=== PATIENT | female | born 1975 | race Caucasian/White ===

== ENCOUNTER 2017-01-31 15:22 | Emergency (ER) | payer MEDICARE ==
[~2017-01-31] VITALS: Ht 165.1 cm; Wt 72.5 kg
[2017-01-31 15:25] VITALS: BP 112/70; PULSE 77; RESP 12; TEMP 97.9; O2SAT 99
[2017-01-31 16:08] LABS: BACTERIA, URINE OCC /hpf; BILIRUBIN, URINE NEG (NEG); BLOOD, URINE NEG (NEG); GLUCOSE,URINE NEG (NEG); KETONE, URINE NEG (NEG); MUCUS URINE FEW /lpf (OCC); NITRITE,URINE NEG (NEG); SQUAMOUS EPITHELIAL CELL URINE 6 /hpf (0-5); URINE COLOR YELLOW (YELLW/STRAW); URINE LEUKOCYTE ESTERASE NEG (NEG)
--- NOTE | 2017-01-31 18:05 | PD ---
HPI Chief Complaint: Back/ Neck Pain or Injury Time Seen by Provider: 17:30 Travel History International Travel<30 days: No Contact w/Intl Traveler<30days: No Traveled to known affect area: No History of Present Illness HPI 41 year-old female presents to the emergency room for evaluation of right lower back pain and right ovarian pain. States back pain is been going on for 2 weeks. She denies trauma or injury. Localized to the right lower lumbar region with radiation into the hip. States this morning when she woke up, the pain was at its worst. Upon trying to get out of bed, she her hip spasmed and locked up causing her to leak peon herself. It was temporarily numb. Since then her symptoms have resolved. She took 2 Tylenol No. 3 a few days ago for back pain and it moderately improved her symptoms. Ovarian pain started 5 days and is intermittent. She has history of ovarian pain in the past. She denies urinary symptoms. Last menstrual cycle ended 5 days ago. PFS Social History Tobacco Use: No Allergies-Medications (Allergen,Severity, Reaction): Coded Allergies: tramadol (Verified Allergy, Severe, 01/31/17) Reported Meds & Prescriptions Reported Meds & Active Scripts Active Prednisone 20 Mg Tab 40 Mg PO DAILY Take 40 mg (2 tablets) daily for 5 days Ibuprofen 600 Mg Tab 600 Mg PO Q8HR PRN 5 Days Robaxin (Methocarbamol) 750 Mg Tab 750 Mg PO Q8HR 5 Days Review of Systems Except as stated in HPI: all other systems reviewed are Neg Physical Exam Narrative GENERAL: Well-nourished, well-developed female in no acute distress. Afebrile. Ambulatory. Moving easily on the bed. SKIN: Focused skin assessment warm/dry. No erythema or ecchymosis. HEAD: Normocephalic. EYES: No scleral icterus. No injection or drainage. NECK: Supple, trachea midline. No JVD or lymphadenopathy. CARDIOVASCULAR: Regular rate and rhythm without murmurs, gallops, or rubs. RESPIRATORY: Breath sounds equal bilaterally. No accessory muscle use. GASTROINTESTINAL: Abdomen soft, non-tender, nondistended. Mild tenderness to palpation over the right pelvic region. No rebound tenderness. No peritoneal signs. BACK: Nontender without obvious deformity. No CVA tenderness. Patient reports improvement of symptoms with palpation. Negative straight leg raise. RECTAL EXAM: Examined in the presence of a nurse. No masses or tenderness, stool is brown. Rectal tone is normal. Data Data Last Documented VS Vital Signs Date Time Temp Pulse Resp B/P (MAP) Pulse Ox O2 Delivery O2 Flow Rate FiO2 01/31/17 20:59 01/31/17 19:27 59 18 99 Room Air 01/31/17 15:25 97.9 Orders Orders Urinalysis - C+S If Indicated (01/31/17 15:38) Ed Urine Pregnancytest Poc (01/31/17 15:38) Ct Abd/Pel W/O Iv Contrast (01/31/17 17:46) Ketorolac Inj (Toradol Inj) (01/31/17 20:30) Orphenadrine Inj (Norflex Inj) (01/31/17 20:30) Ed Discharge Order (01/31/17 20:23) Labs Laboratory Tests Test 01/31/17 15:40 Urine Color YELLOW Urine Turbidity CLEAR Urine pH 6.0 Urine Specific [place] 1.025 Urine Protein TRACE mg/dL Urine Glucose (UA) NEG mg/dL Urine Ketones NEG mg/dL Urine Occult Blood NEG Urine Nitrite NEG Urine Bilirubin NEG Urine Urobilinogen 2.0 MG/DL Urine Leukocyte Esterase NEG Urine RBC 2 /hpf Urine WBC 3 /hpf Urine Squamous Epithelial Cells 6 /hpf Urine Bacteria OCC /hpf Urine Mucus FEW /lpf Microscopic Urinalysis Comment CULT NOT INDICATED MDM Medical Decision Making Medical Screen Exam Complete: Yes Emergency Medical Condition: Yes Medical Record Reviewed: Yes Differential Diagnosis Cauda equina syndrome, muscle spasm, kidney stone, UTI, pyelonephritis, ovarian cyst, ruptured ovarian cyst Narrative Course 41-year-old otherwise healthy female presents to the emergency room for evaluation of 2 separate complaints that she believes may be related. She has right lower back pain radiating down her right extremity for the past 2 weeks and right ovarian pain that started about 5 days ago. Back pain was at its worst today. She had one brief episode of paresthesias of the right lower extremity after waking up this morning. At that time, she also lost control of her bladder. She has had no neurological deficits since then and has been ambulatory. In the ED, she moves easily on the bed. There is no midline tenderness of the spine. No step-off deformity. No trauma or injury to the back. Rectal tone is normal. I spoke to my attending physician, Dr. Lee, who agrees there are no indications for emergent MRI at this time. I suspect brief episode of paresthesias and urinary incontinence was due to muscle spasm/ severe pain rather than cauda equina syndrome. CT was performed to evaluate for possible nephrolithiasis despite normal UA. She has no urinary symptoms. CT shows 2.6 cm right ovarian cyst which is consistent with history and physical exam. Abdomen is otherwise soft and benign. Patient requested pain medication and was given Toradol and Norflex. She'll be discharged with prescriptions for Robaxin, Decadron, and ibuprofen. Told to follow up with a primary care physician for outpatient referrals or return for worsening symptoms. She understands and agrees to plan. Patient was cantankerous on discharge because she did not receive any intervention other than medications. She was informed there is no indication for emergency surgery for her ovarian cyst and sciatica based on labs, imaging, and physical exam. She was angry that our hospital could not provide referrals because medicare told her to come to the ED to get a referral rather than go to her PCP. She was offered name of on-call neurosurgeon and orthopedist but left without her paperwork. Diagnosis Primary Impression: Right ovarian cyst Additional Impression: Sciatica Qualified Codes: M54.31 - Sciatica, right side Referrals: Primary Care Physician Additional Instructions: Prednisone as directed, until gone. Take Robaxin as directed, as needed for pain. Take ibuprofen with food as directed, as needed for pain. Apply ice to the affected area for 20 minutes at a time, as needed for pain and swelling. Follow-up with a primary care physician. Return to the emergency room for worsening symptoms. Scripts Prednisone (Prednisone) 20 Mg Tab 40 MG PO DAILY, #10 TAB 0 Refills Take 40 mg (2 tablets) daily for 5 days Prov: Landry Lee MD 01/31/17 Ibuprofen (Ibuprofen) 600 Mg Tab 600 MG PO Q8HR Y for PAIN for 5 Days, TAB 0 Refills Prov: Landry Lee MD 01/31/17 Methocarbamol (Robaxin) 750 Mg Tab 750 MG PO Q8HR for Muscle Spasm for 5 Days, TAB 0 Refills Prov: Landry Lee MD 01/31/17 Disposition: 01 DISCHARGE HOME Condition: Stable Bernarda Cerna Jan 31, 2017 18:05
[2017-01-31 18:42] VITALS: BP 105/59; PULSE 57; RESP 14; O2SAT 98
[2017-01-31 19:27] VITALS: BP 106/58; PULSE 59; RESP 18; O2SAT 99
--- NOTE | 2017-01-31 20:13 | RADRPT ---
EXAM DATE/TIME: 01/31/2017 19:00 [facility] COMPARISON: No previous studies available for comparison. INDICATIONS : Right flank pain today. ORAL CONTRAST: No oral contrast ingested. RADIATION DOSE: 12.61 CTDIvol (mGy) MEDICAL HISTORY : None SURGICAL HISTORY : None. ENCOUNTER: Initial ACUITY: 1 day PAIN SCALE: 7/10 LOCATION: Right flank TECHNIQUE: Volumetric scanning of the abdomen and pelvis was performed. Using automated exposure control and ad justment of the mA and/or kV according to patient size, radiation dose was kept as low as reasonably achievable to obtain optimal diagnostic quality images. DICOM format image data is available electro nically for review and comparison. FINDINGS: LOWER LUNGS: The visualized lower lungs are clear. LIVER: Homogeneous density without lesion. There is no dilation of the biliary tree. No calcified gallston es. SPLEEN: Old right lower thigh calcifications in the splenic parenchyma. Spleen is slightly prominent at 13 cm . PANCREAS: Within normal limits. KIDNEYS: Normal in size and shape. There is no mass, stone, or hydronephrosis. ADRENAL GLANDS: Within normal limits. VASCULAR: There is no aortic aneurysm. BOWEL/MESENTERY: The stomach, small bowel, and colon demonstrate no acute abnormality. There is no free intraperitone al air or fluid. There appears to be a 3 mm appendicolith in the otherwise radiographically normal ap pendix. Diverticular disease of the sigmoid without diverticulitis ABDOMINAL WALL: Within normal limits. RETROPERITONEUM: There is no lymphadenopathy. BLADDER: No wall thickening or mass. REPRODUCTIVE: 2.6 cm probable cyst associated with the right ovary. INGUINAL: There is no lymphadenopathy or hernia. MUSCULOSKELETAL: Within normal limits for patient age. CONCLUSION: 1. I do not see any renal or ureteral calculi to explain current clinical symptoms. 2. There is a 3 mm calculus which appears to be within the lumen of the appendix. The appendix is oth erwise radiographically normal without CT findings of appendicitis. 3. A 2.6 cm probable right ovarian cyst. This could account for some of the patient's current clinica l symptoms. 4. Diverticular disease of the sigmoid without diverticulitis. 5. Borderline prominent spleen at 13 cm with scattered benign granulomatous type calcifications of th e same. Glen Hemphill MD on January 31, 2017 at 20:05 Board Certified Radiologist. This report was verified electronically.
[2017-01-31] MEDS ORDERED: KETOROLAC TROMETHAMINE 60 MG/2 ML (IM) VIAL IM ONE (20:30)
[2017-01-31] MEDS ORDERED: ORPHENADRINE INJ 60 MG/2 ML AMP IM ONE (20:30)
[2017-01-31] MEDS ORDERED: PRED20 PO (20:32)
[2017-01-31] MEDS ORDERED: IBUP-232 PO (20:32)
[2017-01-31] MEDS ORDERED: ROBA750T PO (20:32)
== END 2017-01-31 21:10 | disposition home or self-care (01) ==
LOC: NEPD 15:22
DX: N83.201 Unspecified ovarian cyst, right side (principal); M54.31 Sciatica, right side; Z79.899 Other long term (current) drug therapy; N94.89 Other specified conditions associated with female genital organs and menstrual cycle; M54.9 Dorsalgia, unspecified
CPT/HCPCS: 74176; 81001; 84703; 96372; J1885; J2360

== ENCOUNTER 2017-06-23 08:36 | Emergency (ER) | payer MEDICARE ==
[~2017-06-23 08:36] MED LIST: IBUP-232 PO; PRED20 PO; ROBA750T PO
[2017-06-23 08:43] VITALS: BP 146/91; PULSE 82; RESP 16; TEMP 98; O2SAT 99
[2017-06-23 09:35] LABS: AUTOMATED NEUTROPHIL # 13.4 TH/MM3 (1.8-7.7); BASOPHIL % 0.3 % (0.0-2.0); HEMATOCRIT 45.1 % (35.0-46.0); HEMOGLOBIN 15.8 GM/DL (11.6-15.3); LYMPH % 9.3 % (9.0-44.0); LYMPHOCYTE # 1.4 TH/MM3 (1.0-4.8); MEAN CORPUSCULAR HEMOGLOBIN 30.9 PG (27.0-34.0); MEAN CORPUSCULAR HGB CONC 35.1 % (32.0-36.0); MEAN PLATELET VOLUME 7.6 FL (7.0-11.0); MONO % 4.9 % (0.0-8.0); MONOCYTE # 0.8 TH/MM3 (0-0.9); NEUT % 85.5 % (16.0-70.0); PLATELET COUNT 475 TH/MM3 (150-450); RED BLOOD COUNT 5.12 MIL/MM3 (4.00-5.30); RED CELL DISTRIBUTION WIDTH 12.7 % (11.6-17.2); WHITE BLOOD COUNT 15.6 TH/MM3 (4.0-11.0)
[2017-06-23 09:44] LABS: BACTERIA, URINE OCC /hpf; BILIRUBIN, URINE NEG (NEG); BLOOD, URINE TRACE (NEG); GLUCOSE,URINE NEG (NEG); HYALINE CAST, URINE 33 /lpf (RARE); KETONE, URINE 10 mg/dL (NEG); MUCUS URINE MANY /lpf (OCC); NITRITE,URINE NEG (NEG); PH, URINE 6.5 (5.0-8.5); SQUAMOUS EPITHELIAL CELL URINE 13 /hpf (0-5); URINE COLOR YELLOW (YELLW/STRAW); URINE LEUKOCYTE ESTERASE NEG (NEG)
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
[2017-06-23 10:11] LABS: BICARBONATE 25.3 MEQ/L (21.0-32.0); CALCIUM 10.5 MG/DL (8.5-10.1); CREATININE 0.93 MG/DL (0.50-1.00)
[2017-06-23] MEDS ORDERED: ONDANSETRON HCL 4 MG/2 ML VIAL IV PUSH ONE (10:15)
[2017-06-23] MEDS ORDERED: SODIUM CHLOR 0.9% 1000 ML INJ 1,000 ML IV ONE (10:15)
[2017-06-23] MEDS ORDERED: BACT800T5 PO (11:28)
[2017-06-23] MEDS ORDERED: ZOFR4TAB3 SL (12:26)
== END 2017-06-23 13:21 | disposition home or self-care (01) ==
LOC: NEPD 08:36
DX: L03.811 Cellulitis of head [any part, except face] (principal); N39.0 Urinary tract infection, site not specified; L03.012 Cellulitis of left finger; L03.114 Cellulitis of left upper limb; J45.909 Unspecified asthma, uncomplicated
CPT/HCPCS: 80048; 80307; 81001; 83690; 84703; 85025; 87086; 96361; 96374; 99284; J2405; J7030